=== PATIENT | female | born 1985 | race Caucasian/White ===

== ENCOUNTER 2019-12-19 09:00 | Outpatient (CLI) | payer OTHER, SELFPAY ==
--- NOTE | ~2019-12-19 | US_ITS ---
EXAMINATION: 1. US FNA w image guidance 2. US FNA additional DATE: 12/19/2019 10:10 INDICATION: Nontoxic multinodular goiter. TECHNIQUE: The procedure and its benefits, risks, and benefits were discussed with the patient. Risks specifical ly discussed included bleeding. The patient verbalized understanding of the risks and agreed to proce ed. The neck was prepped and draped in the usual sterile manner. 1% lidocaine was used for local ane sthesia. Five passes were made with a 25G needle into the lesion in right thyroid lobe. Appropriate needle location was documented with continuous sonographic guidance. Five passes were made with a 25G needle into the lesion in left thyroid lobe. Appropriate needle loc ation was documented with continuous sonographic guidance. There were no immediate complications. Th e patient understood to call the ordering physician for results after a week and a half and verbalize d that understanding. FINDINGS: Grayscale ultrasound images demonstrate needles advanced into a 2.6 cm mixed solid and cystic nodule in right thyroid lobe for biopsy. Grayscale ultrasound images demonstrate needles advanced into a 2.5 cm solid nodule in left thyroid lobe. IMPRESSION: 1. Ultrasound-guided fine needle aspiration of a right thyroid nodule. 2. Ultrasound-guided fine-needle aspiration of a left thyroid nodule. Reviewed, dictated and finalized at location A. 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 Ultrasound-guided fine needle aspiration of a right thyroid nodule. 2. Ultrasound-guided fine-needle aspiration of a left thyroid nodule.
== END 2019-12-19 09:01 | disposition home or self-care (01) ==
PROVIDERS: PCP Family Medicine; Visit Provider Otolaryngology
DX: E04.2 Nontoxic multinodular goiter (principal)
CPT/HCPCS: 10005; 10006; 88108; 88173

== ENCOUNTER 2020-07-29 11:17 | Outpatient (CLI) | payer OTHER, SELFPAY ==
--- NOTE | ~2020-07-29 | US_ITS ---
EXAMINATION: US thyroid EXAM DATE: 07/29/2020 11:58 INDICATION: Follow-up multinodular nontoxic goiter. Previous biopsies largest right and largest lef t nodules. TECHNIQUE: Multiple grayscale and Doppler images of the thyroid were obtained (by a technologist who performed the scan) and subsequently reviewed. Individual nodules and recommendations may be reporte d in accordance with TI-RADS system as designated by the 2017 ACR White Paper TI-RADS committee. Comp arison is made to prior examination from 11/02/2019. FINDINGS: The right thyroid lobe measures 5.3 x 1.9 x 1.8 cm, the left measuring 5.3 x 1.8 x 1.9 cm. Relatively homogeneous thyroid echogenicity with several nodules, largest described below. In the left thyroid lobe there is nodule measuring 2.7 x 1.1 x 1.4 cm, solid (2 points), isoechoic (1 point), wider than tall, smooth margin, without echogenic foci, category TR3 for this nodule. These dimensions are smaller than those provided with the prior exam at 2.8 x 1.7 x 1.6 cm. Visually does not appear to be any significant interval change in this. Please correlate with biopsy results from . In the right thyroid lobe there is nodule measuring 2.5 x 1.9 x 2.2 cm, mixed cystic and solid (1 poi nt), isoechoic (1 point) limits, wider than tall, smooth margin, without echogenic foci, category TR2 for this nodule. Size appears unchanged compared to previous study, please correlate with biopsy re sults from 12/19/2019. IMPRESSION: Stable multinodular goiter. Consider 1-2 year follow-up ultrasound. Reviewed, dictated and finalized at location B. IMPRESSION: Stable multinodular goiter. Consider 1-2 year follow-up antonia matson
== END 2020-07-29 11:18 | disposition home or self-care (01) ==
PROVIDERS: PCP Family Medicine; Visit Provider Otolaryngology
DX: E04.2 Nontoxic multinodular goiter (principal)
CPT/HCPCS: 76536

== ENCOUNTER 2021-09-12 13:38 | Outpatient (CLI) | payer OTHER, SELFPAY ==
--- NOTE | ~2021-09-12 | US_ITS ---
EXAMINATION: US thyroid DATE: 09/12/2021 14:22 INDICATION: Nontoxic multinodular goiter. TECHNIQUE: Multiple ultrasound images of the thyroid were obtained. COMPARISON: Ultrasound 07/29/2020, 11/02/19 FINDINGS: The right thyroid lobe measures 5.5 x 1.5 x 1.6 cm. The left thyroid lobe measures 5.0 x 1.7 x 2.0 c m. In the right thyroid lobe, there is a 1.8 cm mixed cystic and solid, mixed hypoechoic and hyperec hoic, [id number] nodule with smooth margin without echogenic foci (TI-RADS TR4). In the left thy roid lobe, there is a 3.0 cm solid, isoechoic [id number]-[id number] nodule with ill-defined margin without echogenic foci (TR3). Both nodules are stable from 11/02/19 and demonstrated benign pathology at fine n eedle aspiration on 12/19/19. There are subcentimeter nodules in the thyroid. IMPRESSION: 1. Stable multinodular goiter, likely not clinically significant. No follow-up is needed. Reviewed, dictated and finalized at location A. 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
== END 2021-09-12 13:39 | disposition home or self-care (01) ==
LOC: ANHIMG 13:45
PROVIDERS: PCP Family Medicine; Visit Provider Otolaryngology
DX: E04.2 Nontoxic multinodular goiter (principal)
CPT/HCPCS: 76536

== ENCOUNTER → 2021-10-27 14:59 | Outpatient (CLI) | payer OTHER, SELFPAY ==
--- NOTE | ~2021-10-27 | XR_ITS ---
EXAMINATION: XR_CERV2-3V_CR DATE: 10/27/2021 15:17 INDICATION: Neck pain. TECHNIQUE: 3 views of cervical spine were obtained. COMPARISON: None. FINDINGS: There is 4 degrees dextrocurvature of cervical spine. Vertebral body heights and interverte bral disc heights are normal. The facet joints are unremarkable. No central canal stenosis or prevert ebral soft tissue swelling. IMPRESSION: 1. No etiology for the patient's symptoms. Reviewed, dictated and finalized at location A. 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
== END ==
PROVIDERS: PCP Family Medicine; Visit Provider Family Medicine
DX: M54.2 Cervicalgia (principal)
CPT/HCPCS: 72040

== ENCOUNTER → 2022-01-22 12:34 | Outpatient (CLI) | payer OTHER, SELFPAY ==
--- NOTE | ~2022-01-22 | XR_ITS ---
XR lumbar spine 2-3V DATE: 01/22/2022 13:52 INDICATION: Low back pain TECHNIQUE: AP, lateral, coned lateral lumbosacral views COMPARISON: None FINDINGS: There is prominent loss of interspace height at L5-S1. Lumbar interspaces heights are prese rved. There is minimal retrolisthesis at L4-5. The lumbar pedicles are intact. No fracture or bone destruction. The sacroiliac joints appear normal. IMPRESSION: Prominent loss of interspace height at L5-S1 Minimal retrolisthesis at L4-5 Reviewed, dictated and finalized at location A.
== END ==
PROVIDERS: PCP Family Medicine; Visit Provider Family Medicine
DX: M54.50 Low back pain, unspecified (principal); M43.16 Spondylolisthesis, lumbar region; M81.8 Other osteoporosis without current pathological fracture
CPT/HCPCS: 72100

== ENCOUNTER → 2022-06-05 08:10 | Outpatient (CLI) | payer OTHER, SELFPAY ==
--- NOTE | ~2022-06-05 | MR_ITS ---
EXAMINATION: MR lumbar spine wo con DATE: 06/05/2022 09:03 INDICATION: Chronic low back pain. TECHNIQUE: Magnetic resonance imaging (MRI) of the lumbar spine was performed without intravenous con trast. Sequences included sagittal T2-weighted FSE, sagittal T2-weighted FS FSE, sagittal T1-weighted FSE, and axial T2-weighted FSE. COMPARISON: Lumbar spine radiographs 01/22/2022 FINDINGS: Bone alignment is normal. Vertebral body heights are normal. There is moderately decreased disc height at L5-S1 with endplate remodeling. The distal spinal cord signal intensity is normal. The conus medullaris is at L1. The following disc levels are specifically discussed: L1-L2: The disc does not extend beyond the endplate margin. There is no facet joint osteoarthritis. T here is no neural foraminal stenosis. There is no central canal stenosis. L2-L3: The disc does not extend beyond the endplate margin. There is mild right and moderate left fac et joint osteoarthritis. There is no neural foraminal stenosis. There is no central canal stenosis. L3-L4: The disc is mildly bulging. There is mild bilateral facet joint osteoarthritis. There is mild bilateral neural foraminal stenosis. There is mild central canal stenosis. L4-L5: The disc is bulging and has an annular fissure. There is mild bilateral facet joint osteoarthr itis. There is moderate bilateral neural foraminal stenosis. There is mild central canal stenosis. L5-S1: The disc is bulging and has an annular fissure. There is mild bilateral facet joint osteoarthr itis. There is moderate right and mild left neural foraminal stenosis. There is mild central canal st enosis. IMPRESSION: 1. Moderate lumbar spondylosis. Reviewed, dictated and finalized at location A.
== END ==
PROVIDERS: PCP Family Medicine; Visit Provider Family Medicine
DX: G89.29 Other chronic pain (principal); M54.50 Low back pain, unspecified; M47.816 Spondylosis without myelopathy or radiculopathy, lumbar region
CPT/HCPCS: 72148

== ENCOUNTER 2022-06-14 11:32 | Emergency (ER) | payer OTHER, SELFPAY ==
[2022-06-14] VITALS (20 sets, daily range): BP systolic 108–137; BP diastolic 73–100; PULSE 55–74; RESP 10–20; TEMP 36.7; O2SAT 98–100
--- NOTE | ~2022-06-14 | XR_ITS ---
EXAMINATION: XR chest 2V DATE: 06/14/2022 12:47 INDICATION: Chest pain. Cough. TECHNIQUE: Frontal and lateral views of the chest were obtained. COMPARISON: None. FINDINGS: The chest demonstrates clear lungs without pneumonia, pleural effusion, or pneumothorax. Th e heart size is normal. IMPRESSION: 1. No acute cardiopulmonary disease. Reviewed, dictated and finalized at location A.
--- NOTE | 2022-06-14 11:40 | ECG_ITS ---
Measurements Intervals [place] Rate: 70 P: 64 [place]: 138 QRS: 36 QRSD: 93 T: 13 QT: 384 QTc: 417 Interpretive Statements SINUS RHYTHM NONSPECIFIC T-WAVE ABNORMALITY NO PREVIOUS ECG AVAILABLE FOR COMPARISON Electronically Signed On 06-14-2022 15:14:10 CDT by Erika Reynoso M.D.
[2022-06-14 13:16] LABS: Basophils Percent Auto 0.4 % (0.2-1.2); Eosinophils Absolute Auto 0.1 K/mm3 (0-0.3); Eosinophils Percent Auto 1.7 % (0-4.4); Hematocrit 38.8 % (37.0-47.0); Hemoglobin 12.7 g/dL (12.0-15.0); Immature Granulocyte Absolute 0.01 K/mm3 (0.00-0.031); Immature Granulocyte Percent A 0.2 % (0-0.5); Lymphocytes Absolute Auto 1.49 K/mm3 (0.9-3.2); Lymphocytes Percent Auto 27.9 % (18.3-44.2); Mean Corpuscular HGB Conc 32.7 g/dl (32-36); Mean Corpuscular Volume 91.7 fl (80-100); Mean Platelet Volume 9.8 fl (7.4-10.4); Monocytes Absolute Auto 0.6 K/mm3 (0.1-0.6); Monocytes Percent Auto 11.2 % (2.6-8.5); Neutrophils Absolute Auto 3.1 K/mm3 (1.3-6.7); Neutrophils Percent Auto 58.6 % (45.5-73.1); Platelet Count Result 208 k/mm3 (150-375); Red Blood Count 4.23 M/mm3 (4.2-5.4); Red Cell Distribution Width 12.5 % (11.5-14.5); White Blood Count 5.3 K/mm3 (4.5-10.0)
[2022-06-14 13:26] LABS: Alanine Aminotransferase 18 U/L (6-35); Alkaline Phosphatase 56 U/L (38-126); Anion Gap 11 mmol/L (8-16); Aspartate Amino Transferase 39 U/L (14-36); Bilirubin,Total 0.4 mg/dL (0.2-1.3); Blood Urea Nitrogen 8 mg/dL (7-17); Calcium 9.4 mg/dL (8.4-10.2); Carbon Dioxide 27 mmol/L (22-30); Chloride 101 mmol/L (98-107); Estimated Glomerular Filt Rate > 60; Glucose 88 mg/dL (65-110); Lipase 47 U/L (23-300); Potassium 3.6 mmol/L (3.4-5.0); Sodium 139 mmol/L (137-145)
[2022-06-14 13:28] LABS: Prothrombin Time 13.1 Seconds (11.1-14.7)
[2022-06-14 13:29] LABS: Partial Thromboplastin Time 26.5 SECONDS (22.3-36.8)
[2022-06-14 13:30] LABS: D Dimer 0.34 ug/mL (<0.48)
[2022-06-14 13:37] LABS: Troponin I < 0.012 ng/mL (0.000-0.034)
--- NOTE | 2022-06-14 13:44 | ED.CHESTPAIN ---
HPI - Chest Pain General Chief Complaint: Chest Pain Stated Complaint: CP, shortness of breath, cough 4 days Time Seen by Provider: 06/14/22 13:25 Source: patient Mode of arrival: ambulatory Limitations: no limitations History of Present Illness HPI narrative: 36 years old white female presents with retrosternal chest pain worse with breathing and coughing. Patient report coughing for the last 7 days. She lives with asymptomatic family. She denies any fever, chills, nausea, vomiting, shortness of breath. Patient is fully vaccinated for COVID-19. Related Data Allergies Allergy/AdvReac Type Severity Reaction Status Date / Time Penicillins Allergy Unknown yeast Verified 06/14/22 12:52 infection Review of Systems Review of Systems: All systems reviewed & are unremarkable except as noted in HPI and below PMFSH Past Medical History Medical History Anxiety Headache Neck mass Raynauds disease Thyroid nodule Social History Social History Smoking status: Never smoker Second hand tobacco smoke exposure: No Alcohol intake: current Alcohol use details: social Substance use: never Substance use type: does not use Gender identity (if verbalized by the patient): Female Sexual Orientation (if Verbalized by the Patient): Straight or Heterosexual Exam Narrative: General appearance: Well-developed, well-nourished Skin: Normal color Head: Normocephalic, nontraumatic Eyes: Clear conjunctiva ENT: Oropharynx normal, ears normal, nose normal Neck: Supple, nontender Chest and respiratory: Airway patent, no respiratory distress, no accessory muscle use Heart: Regular rate/rhythm Abdomen: Soft, nontender, no organomegaly, quiet bowel sounds Vascular: Normal peripheral pulses, normal capillary refill. 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 tested, no gross motor deficit Course Vital Signs Vital signs: Vital Signs Temperature 36.7 C 06/14/22 11:54 Pulse Rate 63 06/14/22 11:54 Respiratory Rate 20 06/14/22 11:54 Blood Pressure 121/77 06/14/22 11:54 Pulse Oximetry 100 06/14/22 11:54 Oxygen Delivery Room Air 06/14/22 11:54 Temperature 36.7 C 06/14/22 11:54 Pulse Rate 68 06/14/22 12:54 Respiratory Rate 16 06/14/22 12:54 Blood Pressure 133/100 H 06/14/22 12:54 Pulse Oximetry 99 06/14/22 12:54 Oxygen Delivery Room Air 06/14/22 11:54 MDM - Chest Pain Differential Diagnosis Differential diagnosis: Likely atypical chest pain, costochondritis and other (Respiratory viral infection) Lab Data Result diagrams: 06/14/22 13:05 06/14/22 13:05 Labs: Lab Results 06/14/22 06/14/22 06/14/22 Range/Units 13:05 13:05 13:05 WBC 5.3 (4.5-10.0) K/mm3 RBC 4.23 (4.2-5.4) M/mm3 Hgb 12.7 (12.0-15.0) g/dL Hct 38.8 (37.0-47.0) % MCV 91.7 (80-100) fl MCH 30.0 (26-34) pg MCHC 32.7 (32-36) g/dl RDW 12.5 (11.5-14.5) % Plt Count 208 (150-375) k/mm3 MPV 9.8 (7.4-10.4) fl Immature Gran % (Auto) 0.2 (0-0.5) % Neut % (Auto) 58.6 (45.5-73.1) % Lymph % (Auto) 27.9 (18.3-44.2) % [place] % (Auto) 11.2 H (2.6-8.5) % Eos % (Auto) 1.7 (0-4.4) % Baso % (Auto) 0.4 (0.2-1.2) % Lymph # (Auto) 1.49 (0.9-3.2) K/mm3 [place] # (Auto) 0.6 (0.1-0.6) K/mm3 Eos # (Auto) 0.1 (0-0.3) K/mm3 Baso # (Auto) 0.0 (0.0-0.1) K/mm3 Abs Immat Gran (auto) 0.01 (0.00-0.031) K/mm3 Absolute Neuts (auto) 3.1 (1.3-6.7) K/mm3 Absolute Nucleate
== END 2022-06-14 15:02 | disposition home or self-care (01) ==
PROVIDERS: Emergency Provider Emergency Medicine; PCP Family Medicine
DX: R07.9 Chest pain, unspecified (principal); R05.9 Cough, unspecified; F41.9 Anxiety disorder, unspecified; I73.00 Raynaud's syndrome without gangrene
CPT/HCPCS: 36415; 71046; 80053; 83690; 84484; 85025; 85380; 85610; 85730; 93005; 99284

== ENCOUNTER 2023-09-08 17:19 | Emergency (ER) | payer OTHER, SELFPAY ==
[2023-09-08 17:28] VITALS: BP 117/80; PULSE 74; RESP 16; TEMP 36.3; O2SAT 100
--- NOTE | 2023-09-08 17:41 | ED.URI ---
HPI - URI/Sore Throat General Chief Complaint: Upper Respiratory Infection Stated Complaint: Congestion,Cough,Headache Source: patient and RN notes reviewed History of Present Illness HPI Narrative: 38 yo F presents to urgent care with complaints of a cough x 1 month. Pt states her cough has been productive and shes been coughing up green mucous. Pt reports some SOB with her coughing fits. Pt also states she has sinus pressure, congestion, and frontal ADAN the last couple days. Denies any fevers, chills, chest pain, N/V/D, ear pain, or sore throat. Pt has been taking Mucinex at home with minimal relief. Related Data Allergies Allergy/AdvReac Type Severity Reaction Status Date / Time Penicillins Allergy Unknown yeast Verified 03/17/23 10:31 infection Review of Systems Review of Systems: Pertinent positives and pertinent negatives per HPI. [facility] Past Medical History Medical History Anxiety Headache Neck mass Raynauds disease Thyroid nodule Social History Social History Smoking status: Never smoker Second hand tobacco smoke exposure: No Alcohol intake: current Alcohol use details: social Substance use: never Substance use type: does not use Living arrangements: with family Occupation/Education: occupation Gender identity (if verbalized by the patient): Female Sexual Orientation (if Verbalized by the Patient): Straight or Heterosexual Comments At the time of my signature, I reviewed and agree with the nursing past medical, surgical, social, and family history. There is no relevant family history pertinent to the patient complaint. Exam Narrative: GENERAL: This is a well-nourished, well-developed patient, in no apparent distress. HEAD: normocephalic, atraumatic. EYES: Sclera clear/white. Vision is grossly intact. EARS: External ears normal, auditory canals clear and without drainage, TMs normal without perforation. Hearing grossly intact. NOSE: External nose normal with no obvious nasal discharge, + congestion THROAT: Mucous membranes moist, posterior pharynx clear. NECK: Neck supple, non-tender without lymphadenopathy, masses or thyromegaly. CARDIOVASCULAR: Regular rate and rhythm without murmurs, gallops, or rubs. RESPIRATORY: Clear to auscultation. Breath sounds equal bilaterally. Mild wheezes noted to left upper and left lower lungs. SKIN: warm, intact with no suspicious lesions or rash, good texture and turgor. NEURO: awake, alert, and oriented to person, place and time. There were no obvious focal neurologic abnormalities. Course Course Level of Care: Express Care Visit Vital Signs Vital signs: Vital Signs Temperature 97.3 F L 09/08/23 17:28 Pulse Rate 74 09/08/23 17:28 Respiratory Rate 16 09/08/23 17:28 Blood Pressure 117/80 09/08/23 17:28 Pulse Oximetry 100 09/08/23 17:28 Oxygen Delivery Room Air 09/08/23 17:28 Temperature 97.3 F L 09/08/23 17:28 Pulse Rate 74 09/08/23 17:28 Respiratory Rate 16 09/08/23 17:28 Blood Pressure 117/80 09/08/23 17:28 Pulse Oximetry 100 09/08/23 17:28 Oxygen Delivery Room Air 09/08/23 17:28 reviewed MDM - URI/Sore Throat MDM Narrative Medical decision making narrative: Go to the ER for any new or worsening symptoms. Avoid smoking/second-hand smoke. Continue to take Tylenol or Motrin for pain. Increase your Vitamin C intake. Use a humidifier or vaporizer at night. Take a probiotic daily while taking the antibiotic Take Medications as prescribed. Drink plenty of water. 8-10 glasses per day. Use flonase 2 times per day for 5 days then as needed Take mucinex 2 times per day and be sure to take with 8oz of water. Follow up with Primary provider if not getting better. Differential Diagnosis Differential diagnosis: Likely upper respiratory infection, otitis media, sinusitis
== END 2023-09-08 18:06 | disposition home or self-care (01) ==
PROVIDERS: Emergency Provider Nurse Practitioner Family; PCP Family Medicine
DX: J40 Bronchitis, not specified as acute or chronic (principal); J32.9 Chronic sinusitis, unspecified
CPT/HCPCS: 99213; G0463

== ENCOUNTER 2023-10-28 08:04 | Emergency (ER) | payer OTHER, SELFPAY ==
--- NOTE | 2023-10-28 08:08 | ED.URI ---
HPI - URI/Sore Throat General Chief Complaint: Upper Respiratory Infection Stated Complaint: Sore Throat Time Seen by Provider: 10/28/23 08:40 Source: patient and RN notes reviewed Mode of arrival: ambulatory Limitations: no limitations History of Present Illness HPI Narrative: 38-year-old female presents with concern for sore throat, body aches, sinus drainage for 2 days. She reports she recently got over COVID. She reports painful swallowing MD elicited complaint: sore throat Related Data Allergies Allergy/AdvReac Type Severity Reaction Status Date / Time Penicillins Allergy Unknown yeast Verified 10/28/23 08:18 infection shellfish derived Allergy Hives Verified 10/28/23 08:18 Review of Systems Review of Systems: CONSTITUTIONAL: Reports malaise, low-grade fever. EYES: Denies visual changes, redness, or discharge. ENT: Reports rhinorrhea, congestion, sore throat. CARDIOVASCULAR: Denies chest pain, palpitations, or edema. RESPIRATORY: Denies cough. Denies dyspnea. GASTROINTESTINAL: Denies abdominal pain, nausea, vomiting, diarrhea SKIN: Denies rash or itching. MUSCULOSKELETAL: Reports myalgia. NEUROLOGIC: Denies headache. All systems reviewed & are unremarkable except as noted in HPI and below PMFSH Past Medical History Medical History Anxiety Headache Neck mass Raynauds disease Thyroid nodule Social History Social History Smoking status: Never smoker Second hand tobacco smoke exposure: No Alcohol intake: current Alcohol use details: social Substance use: never Substance use type: does not use Living arrangements: with family Occupation/Education: occupation Gender identity (if verbalized by the patient): Female Sexual Orientation (if Verbalized by the Patient): Straight or Heterosexual Comments At time of signature, agree with nursing past medical, surgical, social and family history. There is no relevant family history pertinent to the presenting complaint Exam Narrative: GENERAL: Well-appearing, well-nourished, and in no acute distress. HEAD: Normocephalic EYES: PERRLA, conjunctivae clear ENT: Nares clear, turbinates edematous and erythematous, clear discharge. Mucous membranes moist. TM pearly acuña with sharp light reflex bilaterally; no tragal tenderness. Oropharynx erythematous without lesions. Tonsils enlarged and without exudate, no drooling, no hoarseness, no trismus, uvula midline. NECK: Supple. No lymphadenopathy CHEST: Clear to auscultation, breath sounds equal. No wheezing, rhonchi, rales, or stridor. No respiratory distress, speaks in full sentences. HEART: Regular rate and rhythm. No murmur heard. SKIN: Warm, dry, no rash. NEURO: Alert and oriented x3. PSYCH: Normal mood and affect Course Course Emergency Course: Patient is aware of diagnosis, understands and agrees to treatment plan. Anticipatory guidance given. Patient agrees to follow-up as directed and is aware of reasons to seek care at the emergency department. Portions of this record may have been created with voice recognition software Level of Care: Express Care Visit Vital Signs Vital signs: Reviewed. MDM - URI/Sore Throat MDM Narrative Medical decision making narrative: Differential diagnosis considered: [place] virus, strep pharyngitis, allergic rhinitis, upper respiratory tract infection, sinusitis, rhinosinusitis, nasopharyngitis. viral pharyngitis, otitis media, otitis externa, pneumonia, bronchitis, viral cough syndrome, viral syndrome, and influenza. Exam findings show no acute concerns or changes; patient is non-toxic appearing and is in no distress. Patient is appropriate for outpatient treatment and follow-up. Lab Data Attestation: I reviewed the patient's lab results. Critical Care Time Critical Care Time Critical Care Time: No Discharge Plan Discharge Clinical Im
[2023-10-28 08:19] VITALS: BP 116/76; PULSE 81; RESP 16; TEMP 36.4; O2SAT 100
== END 2023-10-28 08:52 | disposition home or self-care (01) ==
PROVIDERS: Emergency Provider Nurse Practitioner; PCP Family Medicine
DX: J02.0 Streptococcal pharyngitis (principal); I73.00 Raynaud's syndrome without gangrene
CPT/HCPCS: 87880; 99213; G0463

== ENCOUNTER 2024-09-06 14:11 | Emergency (ER) | payer OTHER, SELFPAY ==
[2024-09-06 14:26] VITALS: BP 127/71; PULSE 81; RESP 16; TEMP 36.7; O2SAT 100
--- NOTE | 2024-09-06 14:51 | ED.URI ---
HPI - URI/Sore Throat General Chief Complaint: Upper Respiratory Infection Stated Complaint: throat pain Time Seen by Provider: 09/06/24 14:51 Source: patient Mode of arrival: ambulatory Limitations: no limitations History of Present Illness HPI Narrative: 39-year-old female presents with complaint of sore throat for 3-4 days. Reports some mild congestion postnasal drainage. Has felt fatigued with body aches. Reports symptoms started after for been tasting republican at her home. Woke up with headache following day and has had intermittent headaches since then. Reports that uvula feels very swollen and sore. All systems reviewed and negative except as noted above. Related Data Allergies Allergy/AdvReac Type Severity Reaction Status Date / Time Penicillins Allergy Unknown yeast Verified 10/28/23 08:18 infection shellfish derived Allergy Hives Verified 10/28/23 08:18 Review of Systems Review of Systems: CONSTITUTIONAL: Denies fever . Reports chills, or sweats. EYES: Denies visual changes, redness, or discharge. ENT reports rhinorrhea, congestion, sore throat. Denies otalgia. CARDIOVASCULAR: Denies chest pain, palpitations, or edema. RESPIRATORY: Denies cough or dyspnea. GASTROINTESTINAL: Denies abdominal pain, nausea, vomiting, or diarrhea. GENITOURINARY: Denies dysuria or hematuria. SKIN: Denies rash or itching. MUSCULOSKELETAL: Denies back pain, joint pain, or myalgia. NEUROLOGIC: Denies headache, numbness, or weakness. PSYCHIATRIC: Denies anxiety or depression. All other systems reviewed are negative, except as documented in HPI. FOR[facility]LY [facility] Past Medical History Medical History Anxiety Headache Neck mass Raynauds disease Thyroid nodule Social History Social History Smoking status: Never smoker Second hand tobacco smoke exposure: No Alcohol intake: current Alcohol use details: social Substance use: never Substance use type: does not use Living arrangements: with family Occupation/Education: occupation Gender identity (if verbalized by the patient): Female Sexual Orientation (if Verbalized by the Patient): Straight or Heterosexual Comments At time of signature, agree with nursing past medical, surgical, social and family history. There is no relevant family history pertinent to the presenting complaint. Exam Narrative: GENERAL: This is a well-nourished, well-developed patient, in no apparent distress. HEAD: normocephalic, atraumatic. EYES: PERRL. Sclera clear/white. Vision is grossly intact. EARS: External ears normal, auditory canals clear and without drainage, TMs normal without perforation. Hearing grossly intact. NOSE: External nose normal with Clear nasal drainage with mild congestion THROAT: Mucous membranes moist, erythema to posterior pharynx with mild swelling. Tonsils 1+ bilaterally without exudates. NECK: Neck supple, non-tender without lymphadenopathy, masses or thyromegaly. CARDIOVASCULAR: Regular rate and rhythm without murmurs, gallops, or rubs. RESPIRATORY: Clear to auscultation. Breath sounds equal bilaterally. No wheezes, rales, or rhonchi. SKIN: warm, Dry, intact with no suspicious lesions or rash, good texture and turgor. NEURO: awake, alert, and oriented to person, place and time. There were no obvious focal neurologic abnormalities. EXTREMITIES: No joint tenderness, effusion, or edema noted. Course Course Level of Care: Express Care Visit Vital Signs Vital signs: Vital Signs Temperature 36.7 C 09/06/24 14:26 Pulse Rate 81 09/06/24 14:26 Respiratory Rate 16 09/06/24 14:26 Blood Pressure 127/71 09/06/24 14:26 Pulse Oximetry 100 09/06/24 14:26 Oxygen Delivery Room Air 09/06/24 14:26 Temperature 36.7 C 09/06/24 14:26 Pulse Rate 81 09/06/24 14:26 Respiratory Rate 16 09/06/24 14:26 Blood Pressure 127/71 09/06/24 14:26 Pulse Oximetry 100 09/06/24 14:26 Oxygen Delivery Room Air 09/06/24 14:26 MDM - URI/Sore Throat MDM Narrative Medical decision making narrative: strep test negative. Strep culture ordered. Will treat patient with antibiotic due to patient's symptoms and exam findings. Patient agrees with plan of care. Patient is aware of diagnosis, understands and agrees to treatment plan. Anticipatory guidance given. Patient agrees to follow-up as directed and is aware of reasons to seek care at the emergency department. Portions of this record may have been created with voice recognition software Discharge Plan Discharge Clinical Impression: Acute pharyngitis Qualifiers: Pharyngitis/tonsillitis etiology: unspecified etiology Qualified Code(s): J02.9 - Acute pharyngitis, unspecified Patient Disposition: Home, Self-Care Condition: Stable Instructions: Antibiotic Form, Pharyngitis (ED) Additional Instructions: your strep test was negative today. Due to your symptoms and exam findings I am prescribing an antibiotic today. Take medications as prescribed. If you are having congestion, postnasal drainage and sinus pressure purchase [id number] Claritin D from pharmacy counter. Take Tylenol or ibuprofen every 6-8 hours as needed for pain and fever. Drink at least 64 oz water a day. Follow-up with your doctor if symptoms are not improving. Prescriptions: New clindamycin HCl 300 mg capsule 300 mg PO Q8H 10 Days Qty: 30 0RF methylprednisolone [Medrol (Jamarcus)] 4 mg tablets,dose pack See Rx Instructions PO .COMPLEX Qty: 21 0RF Rx Instructions: orally per package directions No Action azithromycin [Zithromax Z-Jamarcus] 250 mg tablet See Rx Instructions .ROUTE .COMPLEX Qty: 6 0RF Rx Instructions: take 500 mg today (day 1), then 250 mg for 4 days (days 2-5) Follow-up/Referrals: Travis Bauer MD [Primary Care Provider] - Time of Disposition: 15:00
[2024-09-06 14:54] LABS: EDSTREPNEGPOS1 Negative (Negative)
== END 2024-09-06 15:08 | disposition home or self-care (01) ==
PROVIDERS: Emergency Provider Nurse Practitioner Family; PCP Family Medicine
DX: J02.9 Acute pharyngitis, unspecified (principal); I73.00 Raynaud's syndrome without gangrene
CPT/HCPCS: 87081; 87880; 99213; G0463

== ENCOUNTER 2024-10-10 08:27 | Emergency (ER) | payer OTHER, SELFPAY ==
[2024-10-10 08:57] VITALS: BP 112/70; PULSE 84; RESP 18; TEMP 36.6; O2SAT 100
[2024-10-10 09:08] LABS: EDSTREPNEGPOS1 Positive (Negative)
--- NOTE | 2024-10-10 09:09 | ED_ITS ---
HPI - URI/Sore Throat General Chief Complaint: Upper Respiratory Infection Stated Complaint: fever/sore throat Time Seen by Provider: 10/10/24 09:09 History of Present Illness HPI Narrative: 39-year-old female presented for complaint of sore throat, headache, nausea. Onset in the middle of the night. Son has strep throat. Denies difficulty swallowing or maintaining secretions, shortness of breath, vomiting or lethargy. Taking ibuprofen for symptoms. Related Data Allergies Allergy/AdvReac Type Severity Reaction Status Date / Time shellfish derived Allergy Mild Hives Verified 10/10/24 08:37 Penicillins AdvReac Mild yeast Verified 10/10/24 08:37 infection Review of Systems Review of Systems: CONSTITUTIONAL: Denies body aches, fever, chills, or sweats. EYES: Denies visual changes, redness, or discharge. ENT: Reports sore throat Denies rhinorrhea, congestion, or otalgia. CARDIOVASCULAR: Denies chest pain, palpitations, or edema. RESPIRATORY: Denies dyspnea. GASTROINTESTINAL: Reports nausea Denies abdominal pain, vomiting, or diarrhea. SKIN: Denies rash MUSCULOSKELETAL: Denies back pain, joint pain, or myalgia. NEUROLOGIC: Reports headache PMFSH Past Medical History Medical History Anxiety Raynauds disease Thyroid nodule Headache Neck mass Social History Social History Smoking status: Never smoker Second hand tobacco smoke exposure: No Alcohol intake: current Alcohol use details: social Substance use: never Substance use type: does not use Living arrangements: with family Occupation/Education: occupation Gender identity (if verbalized by the patient): Female Sexual Orientation (if Verbalized by the Patient): Straight or Heterosexual Exam Narrative: GENERAL: well-appearing, no acute distress. EYES: conjunctivae clear ENT: Mucous membranes moist. TM pearly acuña with normal light reflex bilaterally; no tragal tenderness. Oropharynx erythematous without lesions. Tonsils enlarged 1+ and without exudate. No drooling, no hoarseness, no trismus, uvula midline. No tripod positioning, hot potato voice, or soft palate swelling. NECK: Supple. No lymphadenopathy CHEST: Clear to auscultation, breath sounds equal. No respiratory distress, speaks in full sentences. HEART: Regular rate and rhythm. No murmur heard. SKIN: Warm, dry, no rash. NEURO: Alert and oriented x3. Course Course Emergency Course: Patient is aware of diagnosis, understands and agrees to treatment plan. Anticipatory guidance given. Patient agrees to follow-up as directed and is aware of reasons to seek care at the emergency department. Portions of this record may have been created with voice recognition software Level of Care: Express Care Visit Vital Signs Vital signs: Vital Signs Temperature 97.8 F 10/10/24 08:57 Pulse Rate 84 10/10/24 08:57 Respiratory Rate 18 10/10/24 08:57 Blood Pressure 112/70 10/10/24 08:57 Pulse Oximetry 100 10/10/24 08:57 Oxygen Delivery Room Air 10/10/24 08:57 Temperature 97.8 F 10/10/24 08:57 Pulse Rate 84 10/10/24 08:57 Respiratory Rate 18 10/10/24 08:57 Blood Pressure 112/70 10/10/24 08:57 Pulse Oximetry 100 10/10/24 08:57 Oxygen Delivery Room Air 10/10/24 08:57 MDM - URI/Sore Throat MDM Narrative Medical decision making narrative: Positive strep result reviewed with pt. Advise supportive treatments. Patient is appropriate for outpatient treatment and follow-up. Differential Diagnosis Differential diagnosis: Likely upper respiratory infection, viral infection and pharyngitis Lab Data Labs: Lab Results 10/10/24 Range/Units 09:07 POC Grp A Strep Screen Positive (Negative) Discharge Plan Discharge Clinical Impression: Strep pharyngitis Patient Disposition: Home, Self-Care Condition: Stable Instructions: Antibiotic Form, Strep Throat (ED) Additional Instructions: - Take the antibiotic as directed. Fever and sore throat typically resolve within one to three days. Most patients can return to work, after 12 to 24 hours of antibiotic therapy, provided you are fever free and otherwise well. -Eat and drink things that are easy to swallow, like soft foods, cool liquids, tea with honey, or popsicles . -Salt water gargles and/or may use topical anesthetic ( Chloraseptic spray) or lozenges to relieve dryness or throat pain -Alternate Tylenol and ibuprofen as needed for pain and fever as directed. 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 Throw away the toothbrush after 24hours of antibiotic. -Follow up with primary care provider in 2-3 days if condition is not improving -Go to the ER if you have trouble breathing, cannot drink enough fluids, have muffled voice or drooling, difficulty opening your mouth, or severe swelling. Patient Language: Hungarian Prescriptions: New fluconazole 150 mg tablet 150 mg PO DAILY Qty: 2 0RF amoxicillin 500 mg tablet 1,000 mg PO DAILY 10 Days Qty: 20 0RF Follow-up/Referrals: Travis Bauer MD [Primary Care Provider] - Time of Disposition: 09:13
== END 2024-10-10 09:15 | disposition home or self-care (01) ==
PROVIDERS: Emergency Provider Nurse Practitioner Family; PCP Family Medicine
DX: J02.0 Streptococcal pharyngitis (principal); I73.00 Raynaud's syndrome without gangrene
CPT/HCPCS: 87880; 99213; G0463

== ENCOUNTER 2025-08-17 10:24 | Outpatient (CLI) | payer OTHER, SELFPAY ==
--- NOTE | ~2025-08-17 | MM_ITS ---
EXAMINATION: MM screening evette BI w isaac HISTORY: Screening TECHNIQUE: Craniocaudal and mediolateral oblique 3-D tomosynthesis images were obtained and synthetic 2-D images were generated. CAD analysis was submitted and interpreted. COMPARISON: No prior mammogram is available for comparison at this institution. BREAST PARENCHYMAL COMPOSITION: Not dense: There are scattered areas of fibroglandular density. FINDINGS: There is no evidence of suspicious mass, calcification, or architectural distortion to suggest malignancy in either breast. There has been no suspicious interval change. IMPRESSION: 1. No mammographic evidence of malignancy. 2. Recommend routine screening mammography in one year. BI-RADS Category 1: Negative Reviewed, dictated and finalized at location [facility].
== END 2025-08-17 10:25 | disposition home or self-care (01) ==
LOC: MICIMG 10:25
PROVIDERS: PCP Family Medicine; Visit Provider Obstetrics & Gynecology Gynecology
DX: Z12.31 Encounter for screening mammogram for malignant neoplasm of breast (principal)
CPT/HCPCS: 77063; 77067